=== PATIENT | female | born 1950 | race Caucasian/White ===

== ENCOUNTER 2019-09-30 07:58 | Outpatient (CLI) | payer MEDICARE, SELFPAY ==
--- NOTE | ~2019-09-30 | US_ITS ---
EXAMINATION: US right upper quadrant EXAM DATE: 09/30/2019 08:34 INDICATION: Abdominal pain, symptoms one year. TECHNIQUE: Multiple grayscale and Doppler images of the abdomen right upper quadrant were obtained (b y a technologist who performed the scan) and subsequently reviewed. There is no prior study for aisha casillas. FINDINGS: The pancreatic head and body are normal in appearance. The pancreatic tail is not visualized. The l iver has normal echogenicity and contour. There are no focal liver lesions identified. There is no evidence of intrahepatic biliary duct dilation. Portal venous flow was seen in the hepatopedal, nor mal direction and has normal Doppler waveform. No right-sided hydronephrosis. Anechoic lesion consis tent with cyst in the superior pole of the right kidney measuring about 2.8 cm. Common bile duct measures 4 mm, which is normal. The gallbladder wall is normal in thickness, with ex pected amount of distention. No sonographic evidence of pericholecystic fluid. There is no cholelit hiases. Technologist performing exam reports patient did not demonstrate sonographic Bales's sign. Please note that this sign is less reliable in patients who have received pain medication. IMPRESSION: 1. Unremarkable abdominal ultrasound exam. Reviewed, dictated and finalized at location B. CAL OFFICE CLERK
== END 2019-09-30 07:59 | disposition home or self-care (01) ==
PROVIDERS: PCP Internal Medicine; Visit Provider Internal Medicine
DX: R10.9 Unspecified abdominal pain (principal)
CPT/HCPCS: 76705

== ENCOUNTER 2022-06-02 12:01 | Day surgery (SDC) | payer MEDICARE, SELFPAY ==
[2022-03-08 10:29] VITALS: BMI 36.8
[2022-05-19 10:12] VITALS: BMI 35.9
--- NOTE | 2022-06-02 07:18 | PM.HPGS ---
History of Present Illness History of Present Illness Consent: Risks, benefits, and alternatives have been discussed and questions answered. Patient agrees to proceed with procedure. Chief complaint: History of Colon Polyps Narrative: Catrina Proctor is a 71 year old female referred for colon cancer screening. She had a polyp removed about 5 years ago. Review of Systems Review of Systems: All systems reviewed & are unremarkable except as noted in HPI and below PMFSH Social History Social History Smoking status: Former smoker Alcohol intake: never Substance use: never Substance use type: does not use Living arrangements: with family Spiritual care concerns: No Meds Home Medications and Allergies Home Medications Medication Instructions Recorded Confirmed Type albuterol 90 mcg/actuation aerosol 90 mcg inhalation PRN PRN 05/19/22 05/19/22 History inhaler Shortness Of Breath Or Wheezing amlodipine 5 mg tablet 5 mg PO DAILY 05/19/22 05/19/22 History atorvastatin 40 mg tablet 40 mg PO HS 05/19/22 05/19/22 History budesonide 160 mcg-glycopyr 9 2 inh inhalation QAM AND QPM 05/19/22 05/19/22 History mcg-formot 4.8 mcg/actuation HFA inhaler (Breztri Aerosphere) gabapentin 300 mg tablet 300 mg PO TID 05/19/22 05/19/22 History hydrochlorothiazide 25 mg tablet 25 mg PO DAILY 05/19/22 05/19/22 History pantoprazole 40 mg tablet,delayed 40 mg PO QAM 05/19/22 05/19/22 History release tramadol 50 mg tablet 50 mg PO Q6H PRN Back Pain 05/19/22 05/19/22 History Allergies Allergy/AdvReac Type Severity Reaction Status Date / Time No Known Allergies Allergy Verified 06/02/22 12:39 Exam Resp: Auscultation: clear to auscultation bilaterally Cardio: Rate: regular rate Rhythm: regular rhythm GI: GI Palp: Yes Soft to palpation and No Tenderness to palpation present (GI) Assessment and Plan Assessment and plan (1) Colon cancer screening: Code(s): Z12.11 - Encounter for screening for malignant neoplasm of colon Status: Acute Assessment and Plan: Colonoscopy with possible biopsy or polypectomy or cautery or injection of substances.
[2022-06-02 12:42] VITALS: BP 140/78; PULSE 75; RESP 13; TEMP 36.8; O2SAT 99; BMI 35.9
[2022-06-02] MEDS: LACTATED RINGERS 1,000 ML 150 ML IV CONT (12:47)
--- NOTE | 2022-06-02 12:59 | WPDANESEPPF ---
Anes - Initial Pre Proc Eval Procedure: Operation Date: 06/02/22 12:30 Proposed Procedures p Screening Colonoscopy - Fer Wharton MD Date/Time: 06/02/22 12:59 Surgeon: Fer Wharton MD Pre Op Diagnosis: History of Colon Polyps Patient Data Age: 71 Gender: F Height: 1.7 m Weight: 104.2 kg Last Vital Signs Temp 36.8 C 06/02/22 12:42 Pulse 75 06/02/22 12:42 Resp 13 06/02/22 12:42 BP 140/78 06/02/22 12:42 Pulse Ox 99 06/02/22 12:42 O2 Del Method Room Air 06/02/22 12:42 Allergies Allergy/AdvReac Type Severity Reaction Status Date / Time No Known Allergies Allergy Verified 06/02/22 12:39 Home Medications Medication Instructions Recorded Confirmed Type albuterol 90 mcg/actuation aerosol 90 mcg inhalation PRN PRN 05/19/22 06/02/22 History inhaler Shortness Of Breath Or Wheezing amlodipine 5 mg tablet 5 mg PO DAILY 05/19/22 06/02/22 History atorvastatin 40 mg tablet 40 mg PO HS 05/19/22 06/02/22 History budesonide 160 mcg-glycopyr 9 2 inh inhalation QAM AND QPM 05/19/22 06/02/22 History mcg-formot 4.8 mcg/actuation HFA inhaler (Breztri Aerosphere) gabapentin 300 mg tablet 300 mg PO TID 05/19/22 06/02/22 History hydrochlorothiazide 25 mg tablet 25 mg PO DAILY 05/19/22 06/02/22 History pantoprazole 40 mg tablet,delayed 40 mg PO QAM 05/19/22 06/02/22 History release tramadol 50 mg tablet 50 mg PO Q6H PRN Back Pain 05/19/22 06/02/22 History Patient hx anesthesia problems: none Family hx anesthesia problems: none Results Review: All pre-operative results and documents have been reviewed as part of the pre-operative evaluation. [facility] Past Medical History Medical History (Updated 06/02/22 @ 12:59 by Nemesio Eller MD) HTN (hypertension) Hyperlipidemia Obesity Surgical History Surgical History (Updated 06/02/22 @ 13:00 by Nemesio Eller MD) H/O colonoscopy History of appendectomy History of lobectomy of lung Hx of tonsillectomy Social History Social History Smoking status: Former smoker Alcohol intake: never Substance use: never Substance use type: does not use Living arrangements: with family Spiritual care concerns: No Anes - Eval Final PreProcedure Day of Procedure 06/02/22 12:59 Patient weight: obese Heart: regular rate and rhythm Lungs: clear to auscultation Airway: Mallampati scale class II Neurological: alert and oriented Last oral intake: >/= 8 hours ASA classification: III Emergent: no Anesthetic plan: proceed Anesthesia type and monitoring: general GIVS and standard monitoring Results Review: All pre-operative results and documents have been reviewed as part of the pre-operative evaluation. Informed Consent: The patient's anesthetic plan and its attendant risks and benefits were discussed with the patient/family/POA. Questions were solicited and answers provided to the satisfaction of the patient/family/POA.
[2022-06-02 13:59] VITALS: BP 115/65; PULSE 71; RESP 14; O2SAT 99
[2022-06-02 14:09] VITALS: BP 123/78; PULSE 71; RESP 18; O2SAT 99
[2022-06-02 14:19] VITALS: BP 132/73; PULSE 72; RESP 20; O2SAT 99
--- NOTE | 2022-06-02 14:24 | WPDANESPN ---
Anes - Prog Note Post-Op Date/Time: 06/02/22 14:24 Cardiovascular status: normal Respiratory status: normal Airway patency: baseline Mental status: baseline Post-Op hydration status: normal Vital Signs: Last Vital Signs Temp 36.8 C 06/02/22 12:42 Pulse 71 06/02/22 14:09 Resp 18 06/02/22 14:09 BP 123/78 06/02/22 14:09 Pulse Ox 99 06/02/22 14:09 O2 Del Method Room Air 06/02/22 14:09 Pain Score (VAS): 0/10 I/O: Intake & Output 06/01/22 06/02/22 06/02/22 23:59 07:59 15:59 Intake Total 400 Balance 400 Patient Feedback: Patient satisfied with anesthetic care.
== END 2022-06-02 14:30 | disposition home or self-care (01) ==
PROVIDERS: PCP Internal Medicine; Visit Provider Internal Medicine Gastroenterology
PROC: 0DJD8ZZ Inspection of Lower Intestinal Tract, Via Natural or Artificial Opening Endoscopic (ICD-10-PCS; CPT 45378; principal; 2022-06-02 12:30)
DX: Z12.11 Encounter for screening for malignant neoplasm of colon (principal)
CPT/HCPCS: 45380

== ENCOUNTER 2022-06-02 13:00 | Outpatient (NON) | payer MEDICARE, SELFPAY | END 2022-06-02 13:01 | disposition home or self-care (01) | PROVIDERS: PCP Internal Medicine; Visit Provider Internal Medicine Gastroenterology | DX: Z12.11 Encounter for screening for malignant neoplasm of colon (principal) | CPT/HCPCS: 88305 ==

== ENCOUNTER 2023-03-06 01:41 | Day surgery (SDC) | payer MEDICARE, SELFPAY ==
[2023-03-02 09:28] VITALS: BMI 37.0
--- NOTE | 2023-03-03 15:59 | PM.HPGS ---
History of Present Illness History of Present Illness Consent: Risks, benefits, and alternatives have been discussed and questions answered. Patient agrees to proceed with procedure. Chief complaint: Dysphagia Narrative: Catrina Proctor is a 72 year old female With dysphagia. she states that she has been having difficulty with swallowing as though food catches in her throat. If he has to lay on 1 side towards the right. This happens a particular with vinegar or spicy materials. She does not actually have food get impacted where she needs to stop eating. She also has pain in the upper abdomen. She has had this for about 2 years and is a constant pain across the upper abdomen including the epigastric area and right upper quadrant. At times it will radiate to the back. It never subsides. She did have a gallbladder ultrasound recently and is awaiting those results Review of Systems Review of Systems: All systems reviewed & are unremarkable except as noted in HPI and below PMFSH Past Medical History Medical History HTN (hypertension) Hyperlipidemia Obesity Surgical History Surgical History H/O colonoscopy History of appendectomy History of lobectomy of lung Hx of tonsillectomy Social History Social History Smoking packs per day: 0.5 Smoking cigarettes per day: 10.0 Years smoked: 15 Smoking pack-years: 7.50 Smoking status: Former smoker Tobacco type: cigarettes Alcohol intake: never Substance use: never Substance use type: does not use Living arrangements: with family Spiritual care concerns: No Meds Home Medications and Allergies Home Medications Medication Instructions Recorded Confirmed Type albuterol 90 mcg/actuation aerosol 90 mcg inhalation PRN PRN 05/19/22 03/02/23 History inhaler Shortness Of Breath Or Wheezing amlodipine 5 mg tablet 5 mg PO DAILY 05/19/22 03/02/23 History atorvastatin 40 mg tablet 40 mg PO HS 05/19/22 03/02/23 History budesonide 160 mcg-glycopyr 9 2 inh inhalation QAM AND QPM 05/19/22 03/02/23 History mcg-formot 4.8 mcg/actuation HFA inhaler (Breztri Aerosphere) hydrochlorothiazide 25 mg tablet 25 mg PO DAILY 10/13/22 07/27/23 History pantoprazole 40 mg tablet,delayed 40 mg PO QAM 05/19/22 03/02/23 History release Allergies Allergy/AdvReac Type Severity Reaction Status Date / Time No Known Allergies Allergy Verified 03/06/23 11:29 Exam Const: General: alert Orientation/consciousness: patient oriented x3 Resp: Auscultation: clear to auscultation bilaterally Cardio: Rhythm: regular rhythm GI: GI Palp: Yes Soft to palpation and No Tenderness to palpation present (GI) Neuro: General: patient oriented x3 Assessment and Plan Assessment and plan (1) Dysphagia: Code(s): R13.10 - Dysphagia, unspecified Status: Acute Assessment and Plan: EGD with possible biopsy or dilatation or cautery.
[2023-03-06 11:29] VITALS: BP 149/76; PULSE 78; RESP 18; TEMP 36.6; O2SAT 96
[2023-03-06] MEDS: LACTATED RINGERS 1,000 ML 150 ML IV CONT (11:36)
--- NOTE | 2023-03-06 11:53 | WPDANESEPPF ---
Anes - Initial Pre Proc Eval Procedure: Operation Date: 03/06/23 13:00 Proposed Procedures p Esophagogastroduodenoscopy - Fer Wharton MD Date/Time: 03/06/23 11:53 Surgeon: Fer Wharton MD Pre Op Diagnosis: Dysphagia Patient Data Age: 72 Gender: F Height: 1.68 m Weight: 102.4 kg Last Vital Signs Temp 97.8 F 03/06/23 11:29 Pulse 78 03/06/23 11:29 Resp 18 03/06/23 11:29 BP 149/76 H 03/06/23 11:29 Pulse Ox 96 03/06/23 11:29 O2 Del Method Room Air 03/06/23 11:29 Allergies Allergy/AdvReac Type Severity Reaction Status Date / Time No Known Allergies Allergy Verified 03/06/23 11:29 Home Medications Medication Instructions Recorded Confirmed Type albuterol 90 mcg/actuation aerosol 90 mcg inhalation PRN PRN 05/19/22 03/02/23 History inhaler Shortness Of Breath Or Wheezing amlodipine 5 mg tablet 5 mg PO DAILY 05/19/22 03/02/23 History atorvastatin 40 mg tablet 40 mg PO HS 05/19/22 03/02/23 History budesonide 160 mcg-glycopyr 9 2 inh inhalation QAM AND QPM 05/19/22 03/02/23 History mcg-formot 4.8 mcg/actuation HFA inhaler (Breztri Aerosphere) hydrochlorothiazide 25 mg tablet 25 mg PO DAILY 05/19/22 03/02/23 History pantoprazole 40 mg tablet,delayed 40 mg PO QAM 05/19/22 03/02/23 History release Patient hx anesthesia problems: none Family hx anesthesia problems: none Results Review: All pre-operative results and documents have been reviewed as part of the pre-operative evaluation. [facility] Past Medical History Medical History HTN (hypertension) Hyperlipidemia Obesity Surgical History Surgical History H/O colonoscopy History of appendectomy History of lobectomy of lung Hx of tonsillectomy Social History Social History Smoking packs per day: 0.5 Smoking cigarettes per day: 10.0 Years smoked: 15 Smoking pack-years: 7.50 Smoking status: Former smoker Tobacco type: cigarettes Alcohol intake: never Substance use: never Substance use type: does not use Living arrangements: with family Spiritual care concerns: No Anes - Eval Final PreProcedure Day of Procedure 03/06/23 11:53 Patient weight: obese Heart: regular rate and rhythm Lungs: clear to auscultation Airway: Mallampati scale class II Neurological: alert and oriented Last oral intake: >/= 8 hours ASA classification: III Emergent: no Anesthetic plan: proceed Anesthesia type and monitoring: general GIVS and standard monitoring Results Review: All pre-operative results and documents have been reviewed as part of the pre-operative evaluation. Informed Consent: The patient's anesthetic plan and its attendant risks and benefits were discussed with the patient/family/POA. Questions were solicited and answers provided to the satisfaction of the patient/family/POA.
[2023-03-06 12:29] VITALS: BP 118/59; PULSE 74; RESP 27; O2SAT 100
[2023-03-06 12:39] VITALS: BP 114/68; PULSE 66; RESP 24; O2SAT 100
[2023-03-06 12:49] VITALS: BP 144/72; PULSE 76; RESP 19; O2SAT 99
== END 2023-03-06 12:54 | disposition home or self-care (01) ==
PROVIDERS: PCP Internal Medicine; Visit Provider Internal Medicine Gastroenterology
PROC: 0DJ08ZZ Inspection of Upper Intestinal Tract, Via Natural or Artificial Opening Endoscopic (ICD-10-PCS; CPT 43235; principal; 2023-03-06 13:00)
DX: K25.9 Gastric ulcer, unspecified as acute or chronic, without hemorrhage or perforation (principal); R13.10 Dysphagia, unspecified; K21.9 Gastro-esophageal reflux disease without esophagitis; I10 Essential (primary) hypertension; E78.5 Hyperlipidemia, unspecified; Z79.51 Long term (current) use of inhaled steroids; E66.9 Obesity, unspecified; Z68.36 Body mass index [BMI] 36.0-36.9, adult; Z87.891 Personal history of nicotine dependence
CPT/HCPCS: 43239; 87081; 88305; J2704; J7120

== ENCOUNTER 2024-04-05 12:29 | Outpatient (CLI) | payer MEDICARE, SELFPAY ==
--- NOTE | ~2024-04-05 | MR_ITS ---
MRI of the right knee Clinical history: Osteoarthritis Technique: Coronal proton density and proton density-weighted images, sagittal proton-density and T2 fat-sat images, and axial proton-density fat-saturated images were acquired. Findings: There is probable severe mucoid degenerative change of the ACL, which is likely intact othe rwise. Posterior cruciate ligament is intact. Medial collateral ligament and the lateral collateral l igament complex are intact. Popliteus tendon is intact. There is probable focal complex tearing of the body segment of the lateral meniscus. No medial menisc al tear seen. There is moderate chondromalacia at the patellar apex and inferior femoral trochlea. There is patchy moderate chondromalacia involving the medial and lateral compartments. Small tricompartmental osteoph ytes are present, worst at the lateral joint line. Extensor mechanism is intact. Small joint effusion present. No Brandt's cyst. Impression: Complex tearing of the body segment of the lateral meniscus. Tricompartmental degenerative change, moderate in degree, as detailed above. Reviewed, dictated and finalized at [facility]. Impression: Complex tearing of the body segment of the lateral meniscus. Tricompartmental degenerative change, moderate in degree, as detailed above.
== END 2024-04-05 12:30 ==
LOC: MICIMG 12:31
PROVIDERS: PCP Orthopaedic Surgery; Visit Provider Orthopaedic Surgery
DX: M17.0 Bilateral primary osteoarthritis of knee (principal); S83.271A Complex tear of lateral meniscus, current injury, right knee, initial encounter
CPT/HCPCS: 73721

== ENCOUNTER 2024-04-17 07:58 | Outpatient (CLI) | payer MEDICARE, SELFPAY ==
--- NOTE | 2024-04-17 07:59 | ECG_ITS ---
Test Date: 2024-04-17 08:14:09 Measurements Intervals [place] Rate: 66 P: 44 MD: 189 QRS: 47 QRSD: 92 T: 30 QT: 397 QTc: 419 Interpretive Statements SINUS RHYTHM INCOMPLETE RIGHT BUNDLE BRANCH BLOCK NONSPECIFIC ST & T-WAVE ABNORMALITY- ANTERIOR LEADS BASELINE ARTIFACT- I, II, III, AVR, AVL, AVF BORDERLINE ECG No previous ECG available for comparison Electronically Signed On 04-17-2024 08:24:18 CDT by Arturo Suh D.O.
[2024-04-17 09:00] LABS: Anion Gap 8 mmol/L (4-12); Blood Urea Nitrogen 18 mg/dL (7-17); Calcium 9.1 mg/dL (8.4-10.2); Carbon Dioxide 34 mmol/L (22-30); Chloride 96 mmol/L (98-107); Estimated Glomerular Filt Rate > 60; Glucose 106 mg/dL (65-110); Potassium 3.3 mmol/L (3.4-5.0); Sodium 138 mmol/L (137-145)
== END 2024-04-17 07:59 | disposition home or self-care (01) ==
PROVIDERS: Anesthesiology; PCP Internal Medicine; Visit Provider Orthopaedic Surgery
DX: E78.5 Hyperlipidemia, unspecified (principal); I10 Essential (primary) hypertension; Z79.899 Other long term (current) drug therapy; I45.10 Unspecified right bundle-branch block
CPT/HCPCS: 36415; 80048; 93005

== ENCOUNTER 2024-04-22 02:52 | Day surgery (SDC) | payer MEDICARE, SELFPAY ==
[2024-04-10 15:50] VITALS: BMI 35.4
--- NOTE | 2024-04-10 16:02 | PC.NURSE ---
Report to the Outpatient Waiting Room, entrance under the green pavilion located off [facility], at time 0800__ on date _04/22/24 . Planned Procedure Time: ____1000____.? Time changes happen often and if your time is changed the preop area will call you the afternoon before. - You and your visitor will be asked to self-screen and do not enter if you have any COVID symptoms. Please call surgeon if you need to reschedule. - A mask is optional within the hospital at this time. Patients may have clear liquids (water, carbonated beverages, clear teas, apple juice) until 3 hours prior to surgery with a maximum of 20 ounces. - No food from midnight until time of surgery and no smoking - Infants may have breast milk until 4 hours before surgery, formula 6 hours prior to surgery. - Children will be allowed to drink immediately following surgery.? If applicable, please bring a bottle or sippy cup to assist with drinking. Juice, water, soda, and popsicles are readily available.? For infants on formula, please bring formula the day of surgery.? Pacifiers are allowed. Take only the following medications with a SIP of water on the morning of surgery: ___amlodipine, inhaler__but__hold lasix, celebrex,protnix and vitamin DO NOT STOP ANY OF YOUR OTHER PRESCRIPTION MEDICATIONS PRIOR TO SURGERY EXCEPT THE FOLLOWING Medications to discontinue per physician N/A Date to take last dose____N/A Please no make-up, nail malawian, hairspray, perfume, deodorant, or body powder the day of surgery.? No jewelry (including any body piercings) or valuables the day of surgery, leave them at home.? Please take a shower or bath the night before, or the morning of, surgery with an antibacterial soap.? Wear comfortable, loose fitting clothing.? Children are encouraged to wear pajamas. - Jewelry must be removed prior to entering the operating room.? Rings and piercings that are not removed may be cut off. - The hospital will not accept responsibility for valuables.? - Please leave all valuables, including medications, at home the day of surgery. If you are going home after surgery, a licensed straight truck driver must drive you home.? - NO public transportation without another adult if you receive anesthesia. - We recommend that an adult stay with you for 24 hours following discharge. - We also recommend that you do not drive, make important decision, drink alcoholic beverages, or take any drugs that were not prescribed by your health care provider for at least 24 hours after your discharge time. For Pediatric surgeries, we recommend two adults accompany the child home. Follow any additional instructions given to you from your surgeon. Telephone instructions given to preston conklin____and asked if any additional questions and then verbalized understanding. Patient advised to call surgeon office or pre surgery nurse liaison [phone] if any additional questions.
--- NOTE | 2024-04-10 16:12 | PC.NURSE ---
Report to the Outpatient Waiting Room, entrance under the green pavilion located off [facility], at time __0800 on date __04/22/24 . Planned Procedure Time: .? Time changes happen often and if your time is changed the preop area will call you the afternoon before. - You and your visitor will be asked to self-screen and do not enter if you have any COVID symptoms. Please call surgeon if you need to reschedule. - A mask is optional within the hospital at this time. Patients may have clear liquids (water, carbonated beverages, clear teas, apple juice) until 3 hours prior to surgery with a maximum of 20 ounces. - No food from midnight until time of surgery and no smoking - Infants may have breast milk until 4 hours before surgery, formula 6 hours prior to surgery. - Children will be allowed to drink immediately following surgery.? If applicable, please bring a bottle or sippy cup to assist with drinking. Juice, water, soda, and popsicles are readily available.? For infants on formula, please bring formula the day of surgery.? Pacifiers are allowed. Take only the following medications with a SIP of water on the morning of surgery: __amlodipine and brezrti inhaler. hold lasix, tramadol, vitamin,protonix,celebrex and atorvastatin DO NOT STOP ANY OF YOUR OTHER PRESCRIPTION MEDICATIONS PRIOR TO SURGERY EXCEPT THE FOLLOWING Medications to discontinue per physician n/a Date to take last dose n/a Please no make-up, nail macedonian, hairspray, perfume, deodorant, or body powder the day of surgery.? No jewelry (including any body piercings) or valuables the day of surgery, leave them at home.? Please take a shower or bath the night before, or the morning of, surgery with an antibacterial soap.? Wear comfortable, loose fitting clothing.? Children are encouraged to wear pajamas. - Jewelry must be removed prior to entering the operating room.? Rings and piercings that are not removed may be cut off. - The hospital will not accept responsibility for valuables.? - Please leave all valuables, including medications, at home the day of surgery. If you are going home after surgery, a licensed emt driver must drive you home.? - NO public transportation without another adult if you receive anesthesia. - We recommend that an adult stay with you for 24 hours following discharge. - We also recommend that you do not drive, make important decision, drink alcoholic beverages, or take any drugs that were not prescribed by your health care provider for at least 24 hours after your discharge time. For Pediatric surgeries, we recommend two adults accompany the child home. Follow any additional instructions given to you from your surgeon. Telephone instructions given to preston conklin and asked if any additional questions and then verbalized understanding. Patient advised to call surgeon office or pre surgery nurse liaison [phone] if any additional questions.
--- NOTE | 2024-04-19 09:17 | PM.IMHP ---
H&P: HPI History of Present Illness Date/Time: 04/19/24 09:17 Chief Complaint: Patient has catching and locking her right knee. She has a meniscal tear based on exam and MRI. Review of Systems Musculoskeletal: Musculoskeletal: Reports arthralgias, Reports joint swelling and Reports stiffness [facility] Past Medical History Medical History Alpha 1-antitrypsin PiMS phenotype COPD (chronic obstructive pulmonary disease) HTN (hypertension) Hyperlipidemia Obesity Surgical History Surgical History H/O colonoscopy History of appendectomy History of lobectomy of lung History of uterine suspension procedure Hx of tonsillectomy Family History Family History Father No problems noted. Mother CHF (congestive heart failure) FH: brain aneurysm Cerebrovascular accident Sibling No problems noted. Sibling , cancer No problems noted. Social History Social History Smoking packs per day: 0.5 Smoking cigarettes per day: 10.0 Years smoked: 15 Smoking pack-years: 7.50 Smoking status: Former smoker Tobacco type: cigarettes Second hand tobacco smoke exposure: Yes Alcohol intake: never Substance use: never Substance use type: does not use Last use: 08/07/83 Do You Feel Safe in your Home?: Yes Lack of Transportation: No Lack of Food: Never True Current Housing: I Have Housing Concerned About Future Housing: No Difficulty Paying Gas/Electric Bills: No Difficulty Paying for Meds: No Currently Unemployed: No Education: High School Diploma/GED Difficulty w/ Childcare or Family Care: No Living arrangements: with family Occupation/Education: retired Additional occupation/education comments: Retail/management Gender identity (if verbalized by the patient): Female Spiritual care concerns: No Meds Home Medications and Allergies Home Medications Medication Instructions Recorded Confirmed Type albuterol 90 mcg/actuation aerosol 90 mcg inhalation PRN PRN 05/19/22 04/10/24 History inhaler Shortness Of Breath Or Wheezing amlodipine 5 mg tablet 5 mg PO DAILY 05/19/22 04/10/24 History atorvastatin 40 mg tablet 40 mg PO HS 05/19/22 04/10/24 History budesonide 160 mcg-glycopyr 9 2 inh inhalation QAM AND QPM 05/19/22 04/10/24 History mcg-formot 4.8 mcg/actuation HFA inhaler (Breztri Aerosphere) pantoprazole 40 mg tablet,delayed 40 mg PO QAM 05/19/22 04/10/24 History release tramadol 50 mg tablet 50 mg PO Q6H PRN Pain, Moderate 01/04/24 04/10/24 History celecoxib 200 mg capsule (Celebrex) 200 mg PO DAILY #30 caps 03/04/24 04/09/24 Rx furosemide 40 mg tablet 40 mg PO QAM 03/12/24 04/10/24 History celecoxib 200 mg capsule (Celebrex) 200 mg PO DAILY #30 caps 04/09/24 04/10/24 Rx Allergies Allergy/AdvReac Type Severity Reaction Status Date / Time No Known Allergies Allergy Verified 04/10/24 15:47 Exam Narrative: On exam she has catching and locking laterally on the knee a bit medially as well. Neurologically she appears to be grossly intact. She has pain with manipulation of the knee and a positive Kane's. Eyes: General: appearance normal, both eyes and all related structures Neck: Neck: supple Resp: Effort & Inspection: normal respiratory effort Cardio: Rate: regular rate Rhythm: regular rhythm Radiology Reports: Comments: Patient: Catrina Proctor MRI of the right knee Clinical history: Osteoarthritis Technique: Coronal proton density and proton density-weighted images, sagittal proton-density and T2 fat-sat images, and axial proton-density fat-saturated images were acquired. Findings: There is probable severe mucoid degenerative change of the ACL, which is likely intact other
[2024-04-22] VITALS (7 sets, daily range): BP systolic 131–151; BP diastolic 60–69; PULSE 77–97; RESP 12–25; TEMP 36.2–36.7; O2SAT 94–100
[2024-04-22] MEDS: ACETAMINOPHEN 500 MG TABLET 1000 MG PO (07:36)
--- NOTE | 2024-04-22 07:49 | WPDHPUPDATE1 ---
History and Physical Update Update Date/Time: 04/22/24 07:49 History and Physical has been reviewed, including an updated exam of the patient. There are NO changes in the patient's condition. Risks, benefits, and alternatives have been discussed and questions answered. Patient agrees to proceed with procedure.
[2024-04-22] MEDS: KETOROLAC 15 MG/ML VIAL (*BKC) IV PUSH (07:50)
[2024-04-22] MEDS: LACTATED RINGERS 1,000 ML 30 ML IV CONT (07:57)
--- NOTE | 2024-04-22 08:31 | WPDANESEPPF ---
Anes - Initial Pre Proc Eval Procedure: Operation Date: 04/22/24 10:00 Proposed Procedures p Right Knee Arthroscopy, Partial Meniscectomy Proceed As Indicated - Trung Henriquez MD Date/Time: 04/22/24 08:31 Surgeon: Trung Henriquez MD Pre Op Diagnosis: lateral meniscus tear right knee Patient Data Age: 73 Gender: F Height: 1.68 m Weight: 98.8 kg Last Vital Signs Temp 36.2 C L 04/22/24 08:00 Pulse 80 04/22/24 08:00 Resp 16 04/22/24 08:00 BP 148/68 H 04/22/24 08:00 Pulse Ox 100 04/22/24 08:00 O2 Del Method Room Air 04/22/24 08:00 Allergies Allergy/AdvReac Type Severity Reaction Status Date / Time No Known Allergies Allergy Verified 04/22/24 08:00 Home Medications Medication Instructions Recorded Confirmed Type albuterol 90 mcg/actuation aerosol 90 mcg inhalation PRN PRN 05/19/22 04/10/24 History inhaler Shortness Of Breath Or Wheezing amlodipine 5 mg tablet 5 mg PO DAILY 05/19/22 04/10/24 History atorvastatin 40 mg tablet 40 mg PO HS 05/19/22 04/10/24 History budesonide 160 mcg-glycopyr 9 2 inh inhalation QAM AND QPM 05/19/22 04/10/24 History mcg-formot 4.8 mcg/actuation HFA inhaler (Breztri Aerosphere) pantoprazole 40 mg tablet,delayed 40 mg PO QAM 05/19/22 04/10/24 History release tramadol 50 mg tablet 50 mg PO Q6H PRN Pain, Moderate 01/04/24 04/10/24 History celecoxib 200 mg capsule (Celebrex) 200 mg PO DAILY #30 caps 03/04/24 04/09/24 Rx furosemide 40 mg tablet 40 mg PO QAM 03/12/24 04/10/24 History Patient hx anesthesia problems: none Family hx anesthesia problems: none Results Review: All pre-operative results and documents have been reviewed as part of the pre-operative evaluation. [facility] Past Medical History Medical History Alpha 1-antitrypsin PiMS phenotype COPD (chronic obstructive pulmonary disease) HTN (hypertension) Hyperlipidemia Obesity Surgical History Surgical History H/O colonoscopy History of appendectomy History of lobectomy of lung History of uterine suspension procedure Hx of tonsillectomy Family History Family History Father No problems noted. Mother CHF (congestive heart failure) FH: brain aneurysm Cerebrovascular accident Sibling No problems noted. Sibling , cancer No problems noted. Social History Social History Smoking packs per day: 0.5 Smoking cigarettes per day: 10.0 Years smoked: 15 Smoking pack-years: 7.50 Smoking status: Former smoker Tobacco type: cigarettes Second hand tobacco smoke exposure: Yes Alcohol intake: never Substance use: never Substance use type: does not use Last use: 08/07/83 Do You Feel Safe in your Home?: Yes Lack of Transportation: No Lack of Food: Never True Current Housing: I Have Housing Concerned About Future Housing: No Difficulty Paying Gas/Electric Bills: No Difficulty Paying for Meds: No Currently Unemployed: No Education: High School Diploma/GED Difficulty w/ Childcare or Family Care: No Living arrangements: with family Occupation/Education: retired Additional occupation/education comments: Retail/management Gender identity (if verbalized by the patient): Female Spiritual care concerns: No Anes - Eval Final PreProcedure Day of Procedure 04/22/24 08:31 Patient weight: obese Heart: regular rate and rhythm Lungs: decreased breath sounds Airway: Mallampati scale class II Neurological: alert and oriented Last oral intake: >/= 8 hours ASA classification: III Emergent: no Anesthetic plan: proceed Anesthesia type and monitoring: general LMA and standard monitoring Results Review: All pre-operative results and documents have been reviewed as
[2024-04-22] MEDS: ceFAZolin 2 GM/D5W 50 ML 2 GM/50 ML BAG IVPB (09:03)
[2024-04-22] MEDS: LIDO 1%/EPINEPHRINE 1:100,000 20 ML VIAL INFILTRATE (09:15)
--- NOTE | 2024-04-22 09:31 | W.PM.PROC2 ---
Procedure Note - Detailed Date of Procedure 04/22/24 Pre-op Diagnosis Lateral meniscus tear right knee Post-op Diagnosis Same Procedure Performed RIGHT knee arthroscopy with partial meniscectomy Surgeon Trung Henriquez MD Anesthesia General Description of Procedure Patient brought to operating room # 7. An anesthetic was administered. The knee was sterilely prepped and draped in the usual manner. Standard portals were used. Superior medial portal was used for the outflow cannula, inferior lateral portal was used for the scope, inferior medial portal was used for the instruments. Arthroscopy was performed, the patellar femoral joint degenerative changes. The medial compartment showed fraying. The lateral compartment showed a complex tear with grade 3 chondromalacia. The ACL was intact. Using baskets and devon the meniscal tear was trimmed back to a stable base so the nothing further could be pulled into the joint. Any loose or delaminated fragments were gently trimmed to a stable base. She had a good rather good size plica this is debrided back to a stable base of did not impinge on the femoral condyle any more. At this point the instruments were withdrawn, sutures placed and patient left the operating room in satisfactory condition. Estimated Blood Loss 20 Drains No Packing No Pathology None sent Complications No immediate complications Condition Stable Disposition PACU [facility] Billing Surgery - Charge Forward: Surgery Billing (Arthroscopy Partial Meniscectomy [id number])
[2024-04-22] MEDS: fentaNYL CITRATE INJ (*CRX) 100 MCG/2 ML VIAL 25 MCG IV PUSH ×4 (09:47→10:03)
[2024-04-22] MEDS: oxyCODONE HCL (*CRX) 5 MG TAB IR PO (10:57)
--- NOTE | 2024-04-22 11:01 | SUR.PHASEII ---
DR. ASTORGA'S IT INSTRUCTOR AT HIS OFFICE STATED PATIENT CAN WALK AND BEAR WEIGHT ON RIGHT LEG TOLERATED; MAY USE WALKER TOLERATED UNTIL NOT NEEDED.
== END 2024-04-22 11:18 | disposition home or self-care (01) ==
PROVIDERS: PCP Internal Medicine; Visit Provider Orthopaedic Surgery
PROC: (CPT 29870; principal; 2024-04-22 10:00)
DX: S83.281A Other tear of lateral meniscus, current injury, right knee, initial encounter (principal); X58.XXXA Exposure to other specified factors, initial encounter; Z87.891 Personal history of nicotine dependence; I10 Essential (primary) hypertension; E78.5 Hyperlipidemia, unspecified; E66.9 Obesity, unspecified; Z68.35 Body mass index [BMI] 35.0-35.9, adult; J44.9 Chronic obstructive pulmonary disease, unspecified
CPT/HCPCS: 29881; A9270; J0690; J1100; J1885; J2405; J2704; J3010; J7120

== ENCOUNTER 2024-06-11 12:14 | Outpatient (CLI) | payer MEDICARE, SELFPAY ==
--- NOTE | ~2024-06-11 | US_ITS ---
RIGHT LOWER EXTREMITY VENOUS ULTRASOUND Ordering provider: Trung Henriquez MD History: . EFFUSION, RIGHT KNEE;PAIN IN R KNEE . Comparison: 2 FINDINGS: --COMMON FEMORAL: Patent and free of thrombus. Normal compressibility, phasic flow and augmentation. --PROXIMAL SUPERFICIAL FEMORAL: Patent and free of thrombus. Normal compressibility, phasic flow and augmentation. --DISTAL SUPERFICIAL FEMORAL: Patent and free of thrombus. Normal compressibility, phasic flow and au gmentation. --POPLITEAL: Patent and free of thrombus. Normal compressibility, phasic flow and augmentation. --POSTERIOR TIBIAL: Patent and free of thrombus. Normal compressibility, phasic flow and augmentation . IMPRESSION: Negative right lower extremity venous US. No deep vein thrombosis. Reviewed, dictated and finalized at location A. EYOR ATTENDANT
== END 2024-06-11 12:15 | disposition home or self-care (01) ==
PROVIDERS: PCP Internal Medicine; Visit Provider Orthopaedic Surgery
DX: M25.461 Effusion, right knee (principal); R60.0 Localized edema
CPT/HCPCS: 93971

== ENCOUNTER 2024-09-26 10:47 | Outpatient (CLI) | payer MEDICARE, SELFPAY ==
--- NOTE | ~2024-09-26 | MR_ITS ---
EXAMINATION: MR knee LT wo con DATE: 09/26/2024 11:13 INDICATION: Chronic left knee pain TECHNIQUE: Magnetic resonance imaging (MRI) of the left knee was performed without intravenous contra st. Sequences included coronal PD-weighted FSE, coronal PD-weighted FS FSE, sagittal T2-weighted FSE , sagittal PD-weighted FS FSE and axial PD weighted fat saturated FSE. COMPARISON: None. FINDINGS: Medial compartment: Medial extrusion of the medial meniscal body with complex tear of the posterior body and posterior ho rn of the medial meniscus. Extensive full and near full-thickness cartilage loss with moderate underl fortunato edema-like signal change along the anterior to central weightbearing medial femoral condyle and anteromedial aspect of the medial tibial plateau. Partial-thickness chondral fissuring along the post erior weightbearing medial femoral condyle with underlying cortical irregularity including a small ce ntral subchondral osteophyte. Lateral compartment: Small radial tear involving the inner third of the posterior horn of the lateral meniscus. Small kelsey on of deep chondral fissuring at the central aspect of the lateral tibial plateau. Status post 2 cornelio dral fissuring extending anteroposteriorly midportion of the anterior weightbearing lateral femoral c ondyle. Patellofemoral compartment: Partial-thickness chondral ulceration and deep fissuring with scattered foci of subarticular edema-li ke signal change at the patellar apical ridge and medial lateral facets. Deep chondral ulceration wit h underlying cortical irregularity and mild edema-like signal changes at the caudal aspect of the tro chlear groove and immediately adjacent inferolateral aspect of the medial trochlea. Mild shallow cornelio dral surface regularity along the inferior aspect of the lateral trochlea. Ligaments and tendons: Posterior cruciate ligament is normal. There is at least partial tear at the femoral origin of the in feromedial bundle of the anterior cruciate ligament. There appears to be increased laxity of the dia ining posterior lateral bundle of the ligament which is bowed posteriorly along the periphery of a pr ominent osteophyte arising from the medial wall of the intercondylar groove images of indeterminate r esidual functional integrity. The medial collateral ligament and fibular collateral ligament complex are normal. Mild distal quadriceps tendinopathy. Patellar tendon is normal. The visualized medial and lateral hamstring tendons as well as the iliotibial band are normal. Fluid: Minimal left knee joint effusion with mild synovitis at the suprapatellar pouch. No loose osteochondr al bodies identified. Osseous/other: There is some red marrow reexpansion the distal femur. No fracture or pathologic marrow replacing pro cess. 5.5 x 4.2 x 3.8 cm subcutaneous lipoma overlying the medial side of the medial femoral condyle. IMPRESSION: 1. Complex medial meniscal tear. 2. Tricompartmental osteoarthritis, severe with extensive high-grade chondral malacia in the medial c ompartment and mild with moderate grade chondromalacia in the lateral compartment with high-grade cho ndral malacia in the patellofemoral compartment. 3. At least partial tear of the anterior cruciate ligament including tear of the femoral origin of th e anteromedial bundle of the anterior cruciate ligament. There is laxity with posterior bowing of the posterior lateral bundle which of indeterminate residual functional integrity. Correlate with physic al exam. 4. 5.4 x 4.2 x 3.8 cm subcutaneous lipoma at the medial side of the knee. Reviewed, dictated and finalized at location A. RESSED GAS EQUIPMENT MECHANIC IMPRESSION: 1. Complex medial meniscal tear. 2. Tricompartmental osteoarthritis, severe with extensive high-grade chondral m alacia in the medial compartment and mild with moderate grade chondromalacia in the lateral compartment with high-grade chondral malacia in the patellofemoral compartment. 3. At least partial tear of the anterior cruciate ligament including tear of th e femoral origin of the anteromedial bundle of the anterior cruciate ligament. There is laxity with posterior bowing of the posterior lateral bundle which of indeterminate residual functional integrity. Correlate with physical exam. 4. 5.4 x 4.2 x 3.8 cm subcutaneous lipoma at the medial side of the knee.
== END 2024-09-26 10:48 | disposition home or self-care (01) ==
LOC: MICIMG 10:47
PROVIDERS: PCP Internal Medicine; Visit Provider Orthopaedic Surgery
DX: S83.232A Complex tear of medial meniscus, current injury, left knee, initial encounter (principal); X58.XXXA Exposure to other specified factors, initial encounter; M17.12 Unilateral primary osteoarthritis, left knee
CPT/HCPCS: 73721

== ENCOUNTER 2025-03-28 13:54 | Outpatient (CLI) | payer MEDICARE, SELFPAY ==
--- NOTE | ~2025-03-28 | DEXA_ITS ---
Bone Density Report Name: JENELLE SEARS Age: 74 Sex: Female Ethnicity: White Date of : 1950 Indication: postmenopausal; screening for osteoporosis; height loss; prior fracture; asthma or emphysema; Referring Provider: SERGIO, HELEN Zhong Study: Bone densitometry was performed. Exam Date: March 28, 2025 Accession number: [id number] Bone Density: Region BMD T-score Z-score Classification AP Spine(L1-L4) 1.041 -0.1 2.3 Normal Femoral Neck (Left) 0.715 -1.2 0.8 Osteopenia Total Hip (Left) 0.917 -0.2 1.5 Normal Femoral Neck (Right) 0.929 0.7 2.7 Normal Total Hip (Right) 0.847 -0.8 0.9 Normal Total Hip Mean 0.882 -0.5 1.2 Normal World Health Organization criteria for BMD impression classify patients as: Normal (T-score at or above -1.0), Osteopenia (T-score between -1.0 and -2.5), or Osteoporosis (T-score at or below -2.5). 10-year Fracture Risk(1): Major Osteoporotic Fracture 14% Hip Fracture 2.0% Reported Risk Factors: [place] (), Neck BMD=0.715, BMI=35.1, previous fracture (1) FRAX(R) Version 3.08. Fracture probability calculated for an untreated patient. Fracture probability may be lower if the patient has received treatment. Clinical Information Provided by Patient: Has had a low trauma fracture Has used the following medications: Vitamin D Has the following medical conditions: Asthma or Emphysema Patient maximum height was 67 Menopause Age: 39 Drinks caffeinated beverages Onset of menses at age 13 Number of children 4 Impression: The patient has low bone mass, based on the Left Femoral Neck T-score. The patient has an estimated ten-year risk of hip fracture of 2% and an estimated ten-year risk of major fracture of 14%, based on the WHO FRAX algorithm. The patient has risk factors, including: previous fracture. Discussion: BONE DENSITY IS LOW AT ONE OR MORE SKELETAL SITES. This patient's lowest T-score is low at one or more skeletal sites. It meets the World Health Organization's (WHO) criteria for ?low bone mass? (T-score between -1.0 and -2.5). The patient's 10-year risk of fracture as calculated by FRAX is less than the threshold where pharmacological therapy is recommended by the National Osteoporosis Foundation (NOF). However, all treatment decisions require clinical judgment and consideration of individual patient factors, including patient preferences, comorbidities, previous drug use, risk factors not captured in the FRAX model (e.g., frailty, falls, vitamin D deficiency, increased bone turnover, interval significant decline in bone density) and possible under or overestimation of fracture risk by FRAX. The patient should follow a healthful lifestyle (good nutrition with adequate calcium and vitamin D, and appropriate weight-bearing exercise). Follow-Up: Consider repeating this study in 2 to 3 years to reassess this patient's status, or sooner if there is some new clinical indication. Reported by: MAYDA on 03/28/2025 2:33:00 PM. Reviewed, dictated and finalized at location A.
--- OUTSIDE RECORDS SUMMARY | 2025-03-28 13:58 | XMS_ITS | Clinical Summary ---
Author Organization [facility] Address [facility] [place] [address] Care Team Providers Care Choke Setter Name Role Phone Unavailable Primary Care Provider Unavailabl e Social History Tobacco Use Types Packs/Day Years Used Date Smoking Tobacco: Never Assessed Comments Unknown Sex and Gender Information Value Date Recorded Sex Assigned at Not on file Legal Sex Female 8:28 PM CDT Gender Identity Not on file Sexual Orientation Not on file Plan of Treatment Health Maintenance Due Date Last Done Comments Colorectal Cancer Screening Colonoscopy (10 Years) 1950 Hepatitis C 1969 DTaP, Tdap and Td Vaccines ( 1 - Tdap) 1970 Mammogram Screening 1991 Pneumococcal Vaccine: 50+ Ye ars (1 of 1 - PCV) 2001 Zoster Vaccines (1 of 2) 2001 Dexa Scan (General) 2016 COVID-19 Vaccine (2023-2 5 season) 2024 RSV Immunization or 60+ Years (1 - 1-dose 75+ series) 2026 Meningococcal B Vaccine Aged Out No l onger eligible based on patient's age to complete this topic Meningococcal Vaccine Aged Out No ilana patricia eligible based on patient's age to complete this topic RSV Immunizations Under 20 Months Aged Out No longer eligible based on patient's age to complete this topic
== END 2025-03-28 13:55 | disposition home or self-care (01) ==
LOC: ANHFOHIMG 13:55
PROVIDERS: PCP Internal Medicine; Visit Provider Internal Medicine
DX: M81.0 Age-related osteoporosis without current pathological fracture (principal); M85.852 Other specified disorders of bone density and structure, left thigh
CPT/HCPCS: 77080

== ENCOUNTER 2025-05-16 08:07 | Outpatient (CLI) | payer MEDICARE, SELFPAY ==
--- NOTE | ~2025-05-16 | XR_ITS ---
XR thoracic spine 2V Indication: Acute midline thoracic back pain Comparison: None Findings: The vertebral heights are intact. No fracture or subluxation. The disc heights are intact. Soft tissues unremarkable Impression: No acute abnormality. Reviewed, dictated and finalized at location P. Impression: No acute abnormality.
--- NOTE | ~2025-05-16 | XR_ITS ---
XR lumbar spine 2-3V Indication: Lumbar muscle pain Comparison: None Findings: Grade 1 anterolisthesis of L4-L5, no fracture identified. Mild loss of disc height throughout. Soft tissues unremarkable Impression: No acute abnormality. Reviewed, dictated and finalized at location P. Impression: No acute abnormality.
== END 2025-05-16 08:08 | disposition home or self-care (01) ==
LOC: MICIMG 08:08
PROVIDERS: PCP Internal Medicine; Visit Provider Internal Medicine
DX: M79.18 Myalgia, other site (principal)
CPT/HCPCS: 72070; 72100